=== PATIENT | male | born 1995 | race Caucasian/White ===

== ENCOUNTER 2025-06-26 14:22 | Outpatient (CLI) | payer BC, SELFPAY ==
--- OUTSIDE RECORDS SUMMARY | 2025-06-26 14:27 | XMS_ITS | Clinical Summary ---
Author Organization [facility] Address [address] [place], [place] [id number] Phone [email or web address] Care Team Providers Care Manager Freelance Name Role Phone Unavailable Primary Care Provider Unavailabl e Medications No known medications Active Problems No known active problems Social History Tobacco Use Types Packs/Day Years Used Date Smoking Tobacco: Never Smokeless Tobacco: Never Tobacco Cessation:Counseling Given: No Alcohol Use Standard Drinks/Week Comments Defer 0 (1 standard drink = 0.6 oz pur e alcohol) Intimate Partner Violence Answer Date R ecorded Insults You Not on file 01/08/2021 Threatens You Not on file 01/08/2021 Screams at You Not on file 01/08/2021 Physically Hurt Not on file 01/08/2021 Intimate Partner Violence Score Not on file 01/08/2021 Alcohol Use Answer Date Recorded Alcohol Use Status Defer 11/07/2021 Stress Answer Date Recorded Stress in your Life Not on file 07/31/2024 Dealing with Stress 3 07/31/2024 Sex and Gender Information Value Date Recorded Sex Assigned at Not on file Legal Sex Male 12:16 PM CDT Gender Identity Not on file Sexual Orientation Not on file Last Filed Vital Signs Vital Sign Reading Time Taken Comments Blood Pressure 108/72 05/02/2025 10:10 PM EDT Pulse 94 05/02/2025 10:10 PM EDT Temperature 36.8 C (98.2 F) 05/02/2025 10:10 PM EDT Respiratory Rate 16 06/05/2024 4:10 PM EDT Oxygen Saturation 98% 05/31/2024 7:28 PM EDT Inhaled Oxygen Concentration - - Weight 99.3 kg (219 lb) 06/05/2024 4:10 PM EDT Height 172.7 cm (5' 8 ) 06/05/2024 4:10 PM EDT Body Mass Index 33.3 06/05/2024 4:10 PM EDT Plan of Treatment Health Maintenance Due Date Last Done Comments Dental Cleaning/Exam 1993 HIV Screening 1993 Hepatitis C Screening 1993 Polio Immunization (2 of 3 - 4-dose series) 09/23/1998 08/26/1998 HPV Immunization (1 - Male 3-dose series) 2008 Annual Preventive Exam 2011 Hep B Infection Screening - Triple Screen 2011 Hepatitis B Immunization (1 of 3 - 19+ 3-dose series) 2012 Tetanus Diphtheria and Pertussis Immunization (3 - Td or Tdap) 07/06/2024 07/06/2014, 08/26/1998 Covid-19 Immunization ( season) 2025 Influenza Immunization (#1) 2025 HIB Immunization Aged Out No longer e ligible based on patient's age to complete this topic Hepatitis A Immunization Aged Out No longer eligible based on patient's age to complete this topic Pneumococcal Immunization Aged Out No longer eligible based on patient's age to complete this topic Varicella Immunization Aged Out No lo nger eligible based on patient's age to complete this topic Insurance OPT OUT NO COPAY NB
--- OUTSIDE RECORDS SUMMARY | 2025-06-26 14:27 | XMS_ITS | Clinical Summary ---
Author Organization [facility] Address [address] [place] [id number] Care Team Providers Care Conveyor Mechanic Name Role Phone Pcp, No Primary Care Provider [phone] Source Comments This information has been disclosed to you from confidential records protectedfrom disclosure by state law. You shall make no further disclosure of thisinformation without the specific, written, and informed release of theindividual to whom it pertains, or as otherwise permitted by law. A generalauthorization for the release of medical or other information is not sufficientfor the purposes of therelease of HIV test results or diagnoses. [id number] Allergies No known active allergies Medications No known medications Social History Tobacco Use Types Packs/Day Years Used Date Smoking Tobacco: Every Day Alcohol Use Standard Drinks/Week Comments Yes 0 (1 standard drink = 0.6 oz pur e alcohol) socially Sex and Gender Information Value Date Recorded Sex Assigned at Not on file Legal Sex Male 11:43 PM EDT Gender Identity Not on file Sexual Orientation Not on file Last Filed Vital Signs Vital Sign Reading Time Taken Comments Blood Pressure 148/89 04/26/2017 3:17 AM EDT Pulse 105 04/26/2017 3:36 AM EDT Temperature 36.6 C (97.8 F) 04/26/2017 1:50 AM EDT Respiratory Rate 19 04/26/2017 3:17 AM EDT Oxygen Saturation 99% 04/26/2017 2:00 AM EDT Inhaled Oxygen Concentration 99% 04/26/2017 2 :00 AM EDT Weight - - Height - - Body Mass Index - - Plan of Treatment Not on file Insurance Security Scorecard Pending sale to [facility] MIKE PEREZ [place] [id number] [employer] ACC[employer] Care Teams Conveyor Mechanic Relationship Specialty Start Date End Date Pcp, No No Address PCP - General 04/25/17
--- OUTSIDE RECORDS SUMMARY | 2025-06-26 14:27 | XMS_ITS | Clinical Summary ---
Author Organization [facility] Address [address] [place] [address] Phone Care Team Providers Care Back Panel Padder Name Role Phone Alena Sosa MD Primary Care Provider [phone] Allergies No known active allergies Medications olmesartan-hydroc hlorothiazide (BENICAR HCT) 40-25 mg Oral TabletIndications :Essential hypertension Take 1 Tablet by mouth daily. 90 Tablet 3 5 Active Blood Pressure Monitor [facility] [place] KitIndications:Es sential hypertension Blood pressure kit for home use due to htn 1 Kit 5 Active rosuvastatin (CRESTOR) 10 mg Oral Tablet Take 1 Tablet by mouth nightly. 90 Tablet 3 5 Active Active Problems No known active problems Immunizations Immunization Administration Dates Next Due DTaP, Unspecified Formulation 08/26/1998 MMR 08/26/1998 OPV-Trivalent 08/26/1998 Tdap 07/06/2014 Social History Tobacco Use Types Packs/Day Years Used Date Smoking Tobacco: Never Smokeless Tobacco: Never Alcohol Use Standard Drinks/Week Comments Never 0 (1 standard drink = 0.6 oz pur e alcohol) PHQ-2 Answer Date Recorded PHQ-2 Total Score 0 10/25/2024 Sex and Gender Information Value Date Recorded Sex Assigned at Not on file Legal Sex Male 2:41 AM EDT Gender Identity Not on file Sexual Orientation Not on file Last Filed Vital Signs Vital Sign Reading Time Taken Comments Blood Pressure 162/104 10/25/2024 1:57 PM EST Pulse 105 07/06/2014 4:43 PM EDT Temperature 36.6 C (97.9 F) 10/25/2024 1:57 PM EST Respiratory Rate 16 07/06/2014 4:43 PM EDT Oxygen Saturation 99% 07/06/2014 4:43 PM EDT Inhaled Oxygen Concentration - - Weight 106.1 kg (234 lb) 10/25/2024 1:57 PM EST Height 172.7 cm (5' 8 ) 10/25/2024 1:57 PM EST Body Mass Index 35.58 10/25/2024 1:57 PM EST Plan of Treatment Health Maintenance Due Date Last Done Comments Hepatitis B Vaccine (1 of 3 - 19+ 3-dose series) 2012 DTaP/TDaP/Td (3 - Td or Tdap) 07/06/2024, 08/26/1998 COVID-19 Vaccine (2023-2 5 season) 2025 Influenza Vaccine (#1) 2025 Annual Wellness Exam 10/25/2025 10/25/2024 Meningococcal B Vaccine Aged Out No l onger eligible based on patient's age to complete this topic Pneumococcal Vaccine 0-49 Aged Out No longer eligible based on patient's age to complete this topic Goals Goal Patient Goal Type Associated Problems Recent Progress Patient-Stated? Author Maintain a healthy diet, exercise regularly and maintain an ideal body weight General No Kait Gallo, A Insurance [employer] PPO [employer] PPO Care Teams Back Panel Padder Relationship Specialty Start Date End Date Alena Sosa MD [address] [place] [address] PCP - General Family Medicine 10/25/24
[2025-06-26 14:58] LABS: Hematocrit 42.7 % (42.0-52.0); Hemoglobin 14.7 g/dL (14.1-18.0); Immature Granulocytes % 0.2 %; Mean Corpuscular HGB Conc 34.4 g/dL (31.8-35.4); Mean Corpuscular Hemoglobin 31.0 pg (27.0-31.2); Mean Corpuscular Volume 90.1 fl (80-94); Nucleated Red Blood Cells % 0 %; Platelet Count 251 K/mm3 (142-424); Red Blood Count 4.74 M/mm3 (4.60-6.20); Red Cell Distribution Width-SD 40.4 fL; White Blood Count 9.1 K/mm3 (4.8-10.8)
[2025-06-26 15:20] LABS: Alanine Aminotransferase 75 U/L (12-78); Albumin Level 4.6 g/dl (3.5-5.0); Albumin/Globulin Ratio 1.5 (1.1-1.8); Alkaline Phosphatase 80 U/L (38-126); Anion Gap 15.8 mEq/L (5-15); Aspartate Amino Transferase 43 U/L (17-59); Bilirubin,Total 1.1 mg/dl (0.2-1.3); Blood Urea Nitrogen 12 mg/dl (9-20); Calcium 9.3 mg/dl (8.4-10.2); Carbon Dioxide 25 mmol/L (22.0-30.0); Chloride 103 mmol/L (98-107); Creatinine,Serum 0.60 mg/dl (0.66-1.25); Estimated Glomerular Filt Rate 156 ml/min (>60); GFR (African American) 189 ML/MIN (>60); Globulin 3.0 g/dL (1.3-3.2); Glucose 116 mg/dl (74-100); Potassium 3.8 mmoL/L (3.5-5.1); Sodium 140 mmol/L (136-145); Total Protein,Serum 7.6 g/dl (6.3-8.2)
== END 2025-06-26 23:59 | disposition home or self-care (01) ==
LOC: LAB 14:25
PROVIDERS: PCP Family Medicine; Visit Provider Dermatology
DX: L40.0 Psoriasis vulgaris (principal); Z79.899 Other long term (current) drug therapy
CPT/HCPCS: 36415; 80053; 80074; 85025; 86480; 87389